=== PATIENT | male | born 1950 | race Caucasian/White ===

== ENCOUNTER 2024-01-14 10:37 | Inpatient (IN) | payer OTHER, MEDICARE ==
[2024-01-13 14:02] LABS: BASOPHILS % (AUTO) 0.6 % (0-1); EOSINOPHILS # (AUTO) 0.1 X10'3 (0-0.9); EOSINOPHILS % (AUTO) 1.2 % (0-6); LYMPHOCYTES # (AUTO) 0.8 X10'3 (1.1-4.8); LYMPHOCYTES % (AUTO) 15.6 % (21-51); MEAN CORPUSCULAR HEMOGLOBIN 26.1 PG (27.0-31.0); MEAN CORPUSCULAR HGB CONC 32.1 g/dL (33.0-36.5); MEAN CORPUSCULAR VOLUME 81.3 FL (78-98); MEAN PLATELET VOLUME 8.7 FL (7.4-10.4); MONOCYTES # (AUTO) 0.5 X10'3 (0-0.9); NEUTROPHILS # (AUTO) 3.9 X10'3 (1.8-7.7); NEUTROPHILS % (AUTO) 73.6 % (42-75); PRE OP HEMATOCRIT 40.7 % (42.0-52.0); PRE OP HEMOGLOBIN 13.1 g/dL (14.0-17.9); PRE OP PLATELET COUNT 174 X10'3 (140-440); PRE OP WHITE BLOOD COUNT 5.4 10'3 (4.8-10.8); RED BLOOD COUNT 5.01 X10'6 (4.70-6.10); RED CELL DISTRIBUTION WIDTH 16.3 % (11.5-14.5)
[2024-01-13 14:17] LABS: PRE OP INR 1.1 INR; PRE OP PROTIME 11.5 SECONDS (9.0-12.0)
[2024-01-13 14:21] LABS: ALBUMIN 3.4 G/DL (3.4-5.0); ALBUMIN/GLOBULIN RATIO 0.9 (1.1-1.5); ALKALINE PHOSPHATASE 101 IU/L (46-116); BLOOD UREA NITROGEN 19 MG/DL (7-18); BUN/CREATININE RATIO 13.2 (10.0-20.0); CHLORIDE 106 MMOL/L (99-107); CREATININE 1.44 MG/DL (0.60-1.10); PRE OP ALT 24 U/L (30-65); PRE OP ANION GAP 7 (8-16); PRE OP AST 28 U/L (10-37); PRE OP BILIRUB, TOTAL 0.4 MG/DL (0.0-1.0); PRE OP GLUCOSE 121 MG/DL (70-104); PRE OP POTASSIUM 4.1 MMOL/L (3.4-5.1); PRE OP SODIUM 141 MMOL/L (135-145); TOTAL CARBON DIOXIDE 28.5 MMOL/L (24-32); TOTAL PROTEIN 7.2 G/DL (6.4-8.2); eGFR 48 ML/MIN
[2024-01-14] VITALS (19 sets, daily range): BP systolic 101–127; BP diastolic 65–79; PULSE 60–92; RESP 7–20; TEMP 97.9–98.5; O2SAT 91–100
[~2024-01-14] VITALS: Ht 167.6 cm; Wt 89.3 kg
[2024-01-14] MEDS: metoprolol tartrate 12.5mg (1/2 tablet) PO ONE (05:30)
[2024-01-14] MEDS: cefazolin 2gm/D5W 100mL 100 ML IV ONE (05:30)
[2024-01-14] MEDS: DOCUMENT DATE & TIME OF BETA-BLOCKER PO ONE (08:00)
[~2024-01-14 10:37] MED LIST: APIX5TAB3 PO; ASPI81TA52 PO; CARV6.252 PO; CEPH500C2 PO; DOXY-1 PO; EMPA25TA PO; FINA5TAB11 PO; LEVE10006 PO; LEVO150T8 PO; LORA10TA7 PO; MELA3CAP2 PO; OMEP20CA16 PO; POTA-192 PO; RIVA1PAT TOP; SACU1TAB7 PO; SPIR25TA5 PO
[2024-01-14] MEDS: vancomycin 1,500 MG in NS 300ml IV soln IV ONE (12:54)
[2024-01-14] MEDS: famotidine 20mg tablet PO ONE (12:54)
[2024-01-14] MEDS: ringers solution, lacted 1,000 ML IV SCH (12:54)
[2024-01-14] MEDS ORDERED: sevoflurane 250ml liquid IH ONE (14:41)
[2024-01-14] MEDS ORDERED: fentaNYL/PF 50MCG/1 ML 2ML syringe ONE (14:43)
[2024-01-14] MEDS ORDERED: rocuronium 10mg/ml inj IV ONE (14:44)
[2024-01-14] MEDS ORDERED: propofol inj 20 ML IV ONE (14:44)
[2024-01-14] MEDS ORDERED: meperidine/PF 25mg/ml syringe IV PRN ×3 (15:10)
[2024-01-14] MEDS ORDERED: morphine 2 MG/ML inj. syringe IV PRN ×2 (15:10→16:00)
[2024-01-14] MEDS ORDERED: proCHLORperazine 10 MG/2 ml inj IV PRN (15:10)
[2024-01-14] MEDS ORDERED: ringers solution, lacted 1,000 ML IV SCH (15:10)
[2024-01-14] MEDS ORDERED: morphine 4 MG/ML inj SYRINge IV PRN ×2 (15:10→16:00)
[2024-01-14] MEDS ORDERED: ondansetron/PF 4mg/2ml inj IV PRN ×2 (15:10→16:00)
[2024-01-14] MEDS ORDERED: loratadine 10mg tablet PO PRN (16:00)
[2024-01-14] MEDS ORDERED: albuterol 2.5 MG/3 ML nebule NEB PRN (16:00)
[2024-01-14] MEDS ORDERED: metoclopramide 5 mg/ml inj IV PRN (16:00)
[2024-01-14] MEDS ORDERED: HYDROcodone/acetaminophen 10/325mg tab PO PRN (16:00)
[2024-01-14] MEDS ORDERED: ondansetron/PF 4mg/2ml inj ONE (16:05)
[2024-01-14] MEDS ORDERED: dexamethasone sod phosphate 4mg/ml inj. ONE (16:05)
[2024-01-14] MEDS ORDERED: glycopyrrolate 0.2mg/ml inj ONE (16:06)
[2024-01-14] MEDS ORDERED: neostigmine methylsulfate 1 MG/ML 10ml vial ONE (16:06)
[2024-01-14] MEDS: DOXYCYCLINE 100MG CAPSULE PO SCH (21:11)
[2024-01-14] MEDS: levetiracetam 250mg tablet PO SCH (21:11)
[2024-01-14] MEDS: carvedilol 6.25mg tablet PO SCH (21:11)
[2024-01-14] MEDS: Melatonin 3mg tablet PO SCH (21:11)
[2024-01-14] MEDS: HYDROcodone/acetaminophen 10/325mg tab PO PRN (21:13)
[2024-01-14] MEDS: docusate sod 100mg capsule PO SCH (21:13)
[2024-01-15] VITALS (8 sets, daily range): BP systolic 102–122; BP diastolic 61–89; PULSE 67–95; RESP 15–18; TEMP 97.9–98.8; O2SAT 92–98
[2024-01-15] MEDS: spironolactone 25 MG tablet PO SCH (01:44)
[2024-01-15] MEDS: sacubitril/valsartan 49mg-51mg tablet PO SCH (01:45)
[2024-01-15] MEDS: ceFAZolin inj. 1,000 MG in dextrose 5%-water 50ml 50 ML IV SCH (01:46)
[2024-01-15 06:42] LABS: BASOPHILS % (AUTO) 0.5 % (0-1); EOSINOPHILS % (AUTO) 0 % (0-6); HEMATOCRIT 35.2 % (42.0-52.0); HEMOGLOBIN 11.4 g/dl (14.0-17.9); LYMPHOCYTES # (AUTO) 0.4 X10'3 (1.1-4.8); MEAN CORPUSCULAR HEMOGLOBIN 26.3 PG (27.0-31.0); MEAN CORPUSCULAR HGB CONC 32.5 g/dL (33.0-36.5); MEAN CORPUSCULAR VOLUME 80.7 FL (78-98); MEAN PLATELET VOLUME 9.3 FL (7.4-10.4); MONOCYTES # (AUTO) 0.5 X10'3 (0-0.9); MONOCYTES % (AUTO) 7.3 % (2-12); NEUTROPHILS # (AUTO) 5.7 X10'3 (1.8-7.7); NEUTROPHILS % (AUTO) 86.2 % (42-75); PLATELET COUNT 152 X10'3 (140-440); RED BLOOD COUNT 4.36 X10'6 (4.70-6.10); RED CELL DISTRIBUTION WIDTH 16.1 % (11.5-14.5); WHITE BLOOD COUNT 6.6 X10'3 (4.5-11.0)
[2024-01-15 07:09] LABS: ALANINE AMINOTRANSFERASE 20 U/L (12-78); ALBUMIN 2.9 G/DL (3.4-5.0); ALBUMIN/GLOBULIN RATIO 0.8 (1.1-1.5); ALKALINE PHOSPHATASE 87 IU/L (46-116); ANION GAP 9 (8-16); ASPARTATE AMINO TRANSFERASE 25 U/L (10-37); BILIRUBIN,TOTAL 0.6 MG/DL (0.1-1.0); BLOOD UREA NITROGEN 23 MG/DL (7-18); CHLORIDE 104 MMOL/L (99-107); CREATININE 1.53 MG/DL (0.60-1.10); GLUCOSE 118 MG/DL (70-104); MAGNESIUM 1.8 MG/DL (1.5-2.4); POTASSIUM 4.7 MMOL/L (3.5-5.1); SODIUM 140 MMOL/L (135-145); TOTAL CARBON DIOXIDE 26.6 MMOL/L (24-32); TOTAL PROTEIN 6.4 G/DL (6.4-8.2); eCRCL 38 ML/MIN; eGFR 45 ML/MIN
[2024-01-15] MEDS: rivastigmine 4.6mg/24 hour transdermal patch TOP SCH (08:00)
[2024-01-15] MEDS: levoTHYROXINE 75mcg tablet PO SCH (08:39)
[2024-01-15] MEDS: pantoprazole 40mg Tablet.DR PO SCH (08:40)
[2024-01-15] MEDS: finasteride 5mg tablet PO SCH (11:43)
[2024-01-15] MEDS: furosemide 20 MG/2 ML vial IV ONE (13:36)
[2024-01-16 05:34] LABS: BASOPHILS % (AUTO) 0.4 % (0-1); EOSINOPHILS # (AUTO) 0.1 X10'3 (0-0.9); HEMATOCRIT 34.9 % (42.0-52.0); HEMOGLOBIN 11.4 g/dl (14.0-17.9); LYMPHOCYTES # (AUTO) 0.8 X10'3 (1.1-4.8); LYMPHOCYTES % (AUTO) 15.8 % (21-51); MEAN CORPUSCULAR HEMOGLOBIN 26.5 PG (27.0-31.0); MEAN CORPUSCULAR HGB CONC 32.9 g/dL (33.0-36.5); MEAN CORPUSCULAR VOLUME 80.6 FL (78-98); MONOCYTES # (AUTO) 0.5 X10'3 (0-0.9); MONOCYTES % (AUTO) 9.3 % (2-12); NEUTROPHILS # (AUTO) 3.9 X10'3 (1.8-7.7); NEUTROPHILS % (AUTO) 73.5 % (42-75); PLATELET COUNT 140 X10'3 (140-440); RED BLOOD COUNT 4.33 X10'6 (4.70-6.10); RED CELL DISTRIBUTION WIDTH 16.5 % (11.5-14.5); WHITE BLOOD COUNT 5.2 X10'3 (4.5-11.0)
[2024-01-16 06:00] VITALS: BP 127/78; PULSE 62; RESP 16; TEMP 98.4; O2SAT 92
[2024-01-16 06:01] LABS: ALANINE AMINOTRANSFERASE 16 U/L (12-78); ALBUMIN 2.9 G/DL (3.4-5.0); ALBUMIN/GLOBULIN RATIO 0.8 (1.1-1.5); ALKALINE PHOSPHATASE 80 IU/L (46-116); ANION GAP 10 (8-16); ASPARTATE AMINO TRANSFERASE 22 U/L (10-37); BILIRUBIN,TOTAL 0.4 MG/DL (0.1-1.0); BLOOD UREA NITROGEN 25 MG/DL (7-18); BUN/CREATININE RATIO 16.2 (10.0-20.0); CALCIUM 8.3 MG/DL (8.5-10.1); CHLORIDE 103 MMOL/L (99-107); CREATININE 1.54 MG/DL (0.60-1.10); GLUCOSE 91 MG/DL (70-104); MAGNESIUM 1.7 MG/DL (1.5-2.4); POTASSIUM 4.1 MMOL/L (3.5-5.1); SODIUM 139 MMOL/L (135-145); TOTAL PROTEIN 6.6 G/DL (6.4-8.2); eCRCL 38 ML/MIN; eGFR 44 ML/MIN
[2024-01-16 11:20] VITALS: BP 125/79; PULSE 74; RESP 18; TEMP 97.4; O2SAT 95
[2024-01-16 14:14] VITALS: RESP 18; O2SAT 98
[2024-01-16 15:23] VITALS: BP 130/67; PULSE 67; RESP 17; TEMP 98; O2SAT 95
[2024-01-16 18:00] VITALS: BP 139/80; PULSE 85; RESP 18; TEMP 98.7; O2SAT 91
[2024-01-16 20:00] VITALS: RESP 18; O2SAT 91
[2024-01-17] VITALS: BP 106/70; PULSE 68; RESP 16; TEMP 97.5; O2SAT 94
[2024-01-17 06:00] VITALS: BP 112/70; PULSE 66; RESP 16; TEMP 97.8; O2SAT 94
[2024-01-17 06:01] LABS: BASOPHILS % (AUTO) 0.4 % (0-1); EOSINOPHILS # (AUTO) 0.1 X10'3 (0-0.9); EOSINOPHILS % (AUTO) 1.4 % (0-6); HEMATOCRIT 34.2 % (42.0-52.0); HEMOGLOBIN 11.2 g/dl (14.0-17.9); LYMPHOCYTES # (AUTO) 0.9 X10'3 (1.1-4.8); LYMPHOCYTES % (AUTO) 18.6 % (21-51); MEAN CORPUSCULAR HEMOGLOBIN 26.5 PG (27.0-31.0); MEAN CORPUSCULAR HGB CONC 32.8 g/dL (33.0-36.5); MEAN CORPUSCULAR VOLUME 80.7 FL (78-98); MEAN PLATELET VOLUME 9.2 FL (7.4-10.4); MONOCYTES # (AUTO) 0.5 X10'3 (0-0.9); MONOCYTES % (AUTO) 10.8 % (2-12); NEUTROPHILS # (AUTO) 3.3 X10'3 (1.8-7.7); NEUTROPHILS % (AUTO) 68.8 % (42-75); PLATELET COUNT 143 X10'3 (140-440); RED BLOOD COUNT 4.24 X10'6 (4.70-6.10); RED CELL DISTRIBUTION WIDTH 16.4 % (11.5-14.5); WHITE BLOOD COUNT 4.8 X10'3 (4.5-11.0)
[2024-01-17 06:09] LABS: ALANINE AMINOTRANSFERASE 16 U/L (12-78); ALBUMIN 2.6 G/DL (3.4-5.0); ALBUMIN/GLOBULIN RATIO 0.7 (1.1-1.5); ALKALINE PHOSPHATASE 74 IU/L (46-116); ANION GAP 9 (8-16); ASPARTATE AMINO TRANSFERASE 22 U/L (10-37); BILIRUBIN,TOTAL 0.5 MG/DL (0.1-1.0); BLOOD UREA NITROGEN 23 MG/DL (7-18); BUN/CREATININE RATIO 17.3 (10.0-20.0); CALCIUM 8.1 MG/DL (8.5-10.1); CHLORIDE 103 MMOL/L (99-107); CREATININE 1.33 MG/DL (0.60-1.10); GLUCOSE 93 MG/DL (70-104); MAGNESIUM 1.9 MG/DL (1.5-2.4); POTASSIUM 3.8 MMOL/L (3.5-5.1); SODIUM 138 MMOL/L (135-145); THYROID STIMULATING HORMONE 2.37 ulU/ml (0.34-4.50); TOTAL CARBON DIOXIDE 25.8 MMOL/L (24-32); TOTAL PROTEIN 6.2 G/DL (6.4-8.2); eCRCL 44 ML/MIN; eGFR 53 ML/MIN
[2024-01-17] MEDS: aspirin 81mg, enteric-coated 1 TAB TABLET.DR PO SCH (08:52)
[2024-01-17 11:00] VITALS: BP 103/61; PULSE 67; RESP 17; TEMP 98.3; O2SAT 95
[2024-01-17 18:00] VITALS: BP 141/76; PULSE 70; RESP 18; TEMP 98.6; O2SAT 95
[2024-01-17 20:00] VITALS: RESP 18; O2SAT 95
[2024-01-18 02:00] VITALS: BP 118/68; PULSE 66; RESP 19; TEMP 98.6; O2SAT 94
[2024-01-18 06:00] VITALS: BP 103/67; PULSE 65; RESP 18; TEMP 97.3; O2SAT 100
[2024-01-18 07:02] LABS: BASOPHILS % (AUTO) 0.9 % (0-1); EOSINOPHILS # (AUTO) 0.1 X10'3 (0-0.9); HEMATOCRIT 34.3 % (42.0-52.0); HEMOGLOBIN 11.3 g/dl (14.0-17.9); LYMPHOCYTES # (AUTO) 0.9 X10'3 (1.1-4.8); LYMPHOCYTES % (AUTO) 18.2 % (21-51); MEAN CORPUSCULAR HEMOGLOBIN 26.4 PG (27.0-31.0); MEAN CORPUSCULAR HGB CONC 32.8 g/dL (33.0-36.5); MEAN CORPUSCULAR VOLUME 80.5 FL (78-98); MEAN PLATELET VOLUME 8.9 FL (7.4-10.4); MONOCYTES # (AUTO) 0.5 X10'3 (0-0.9); MONOCYTES % (AUTO) 10.5 % (2-12); NEUTROPHILS # (AUTO) 3.3 X10'3 (1.8-7.7); NEUTROPHILS % (AUTO) 68.4 % (42-75); PLATELET COUNT 144 X10'3 (140-440); RED BLOOD COUNT 4.26 X10'6 (4.70-6.10); RED CELL DISTRIBUTION WIDTH 16.3 % (11.5-14.5); WHITE BLOOD COUNT 4.8 X10'3 (4.5-11.0)
[2024-01-18 07:18] LABS: ALANINE AMINOTRANSFERASE 13 U/L (12-78); ALBUMIN 2.8 G/DL (3.4-5.0); ALBUMIN/GLOBULIN RATIO 0.8 (1.1-1.5); ALKALINE PHOSPHATASE 81 IU/L (46-116); ANION GAP 8 (8-16); ASPARTATE AMINO TRANSFERASE 24 U/L (10-37); BILIRUBIN,TOTAL 0.6 MG/DL (0.1-1.0); BLOOD UREA NITROGEN 20 MG/DL (7-18); BUN/CREATININE RATIO 16.1 (10.0-20.0); CALCIUM 7.9 MG/DL (8.5-10.1); CHLORIDE 101 MMOL/L (99-107); CREATININE 1.24 MG/DL (0.60-1.10); GLUCOSE 92 MG/DL (70-104); MAGNESIUM 1.9 MG/DL (1.5-2.4); POTASSIUM 3.6 MMOL/L (3.5-5.1); SODIUM 135 MMOL/L (135-145); TOTAL CARBON DIOXIDE 26.5 MMOL/L (24-32); TOTAL PROTEIN 6.4 G/DL (6.4-8.2); eCRCL 47 ML/MIN; eGFR 57 ML/MIN
[2024-01-18 11:00] VITALS: BP 109/64; PULSE 60; RESP 16; TEMP 97.9; O2SAT 100
[2024-01-18] MEDS ORDERED: RISP0.5T80 PO (12:42)
[2024-01-18] MEDS ORDERED: RISP0.253 PO (12:42)
[2024-01-18] MEDS ORDERED: morphine 4 MG/ML inj SYRINge IV PRN (17:40)
[2024-01-18] MEDS ORDERED: morphine 2 MG/ML inj. syringe IV PRN (17:40)
[2024-01-18] MEDS ORDERED: HYDROcodone/acetaminophen 5mg/325mg tablet PO PRN (17:40)
[2024-01-18] MEDS ORDERED: HYDROcodone/acetaminophen 10/325mg tab PO PRN (17:40)
[2024-01-18 18:00] VITALS: BP 122/71; PULSE 63; RESP 20; TEMP 98.2; O2SAT 95
[2024-01-18] MEDS: normal saline 1000ml 1,000 ML IV SCH (18:11)
[2024-01-18 20:00] VITALS: RESP 20; O2SAT 95
[2024-01-18] MEDS: Melatonin 3mg tablet PO SCH (20:01)
[2024-01-18 22:00] VITALS: BP 94/77; PULSE 94; RESP 17; TEMP 97.7; O2SAT 94
[2024-01-19 02:00] VITALS: BP 98/61; PULSE 76; RESP 18; TEMP 97.8; O2SAT 96
[2024-01-19 07:00] VITALS: BP 121/70; PULSE 67; RESP 16; TEMP 96.5; O2SAT 95
[2024-01-19 07:43] LABS: BASOPHILS % (AUTO) 0.6 % (0-1); EOSINOPHILS # (AUTO) 0.1 X10'3 (0-0.9); EOSINOPHILS % (AUTO) 3.1 % (0-6); HEMATOCRIT 35.5 % (42.0-52.0); HEMOGLOBIN 11.5 g/dl (14.0-17.9); LYMPHOCYTES # (AUTO) 0.9 X10'3 (1.1-4.8); LYMPHOCYTES % (AUTO) 19.8 % (21-51); MEAN CORPUSCULAR HEMOGLOBIN 26.2 PG (27.0-31.0); MEAN CORPUSCULAR HGB CONC 32.4 g/dL (33.0-36.5); MEAN CORPUSCULAR VOLUME 80.8 FL (78-98); MEAN PLATELET VOLUME 9.3 FL (7.4-10.4); MONOCYTES # (AUTO) 0.5 X10'3 (0-0.9); MONOCYTES % (AUTO) 10.1 % (2-12); NEUTROPHILS % (AUTO) 66.4 % (42-75); PLATELET COUNT 155 X10'3 (140-440); RED BLOOD COUNT 4.39 X10'6 (4.70-6.10); RED CELL DISTRIBUTION WIDTH 16.7 % (11.5-14.5); WHITE BLOOD COUNT 4.5 X10'3 (4.5-11.0)
[2024-01-19 08:51] LABS: ALANINE AMINOTRANSFERASE 13 U/L (12-78); ALBUMIN 2.6 G/DL (3.4-5.0); ALBUMIN/GLOBULIN RATIO 0.7 (1.1-1.5); ALKALINE PHOSPHATASE 76 IU/L (46-116); ANION GAP 8 (8-16); ASPARTATE AMINO TRANSFERASE 21 U/L (10-37); BILIRUBIN,TOTAL 0.4 MG/DL (0.1-1.0); BLOOD UREA NITROGEN 23 MG/DL (7-18); BUN/CREATININE RATIO 18.7 (10.0-20.0); CALCIUM 7.5 MG/DL (8.5-10.1); CHLORIDE 102 MMOL/L (99-107); CREATININE 1.23 MG/DL (0.60-1.10); GLUCOSE 112 MG/DL (70-104); POTASSIUM 3.6 MMOL/L (3.5-5.1); SODIUM 137 MMOL/L (135-145); TOTAL CARBON DIOXIDE 27.3 MMOL/L (24-32); TOTAL PROTEIN 6.2 G/DL (6.4-8.2); eCRCL 48 ML/MIN; eGFR 58 ML/MIN
[2024-01-19 13:36] LABS: BILIRUBIN,URINE NEGATIVE (Neg); CLARITY,URINE SLIGHTLY CLOUDY (Clear); COLOR,URINE YELLOW (Yellow); GLUCOSE, URINE >=1000 mg/dl (Neg); KETONES,URINE TRACE mg/dl (Neg); LEUKOCYTE ESTERASE ,URINE TRACE (Neg); NITRITES, URINE NEGATIVE (Neg); OCCULT BLOOD,URINE NEGATIVE (Neg); PROTEIN,URINE NEGATIVE (Neg)
[2024-01-19 13:45] LABS: UA COLLECTION TYPE NON-SPECIFIED
[2024-01-19 13:47] LABS: SQUAMOUS EPITHELIAL CELL,UR MANY /LPF (FEW)
[2024-01-19 13:51] LABS: YEAST FEW /HPF (NEGATIVE)
[2024-01-19 13:53] LABS: BACTERIA,URINE NONE SEEN /HPF (Neg); RBC,URINE 0-2 /HPF (0-2)
[2024-01-19 16:00] VITALS: BP 121/82; PULSE 67; RESP 18; TEMP 97.1; O2SAT 95
[2024-01-19 18:00] VITALS: BP 95/62; PULSE 73; RESP 15; TEMP 97.8; O2SAT 95
[2024-01-19] MEDS: nystatin/triamcinolone cream 15gm TP SCH (20:00)
[2024-01-19] MEDS: nystatin 15 GM powder TP SCH (21:18)
[2024-01-19 22:00] VITALS: BP 101/47; PULSE 66; RESP 16; TEMP 97.8; O2SAT 99
[2024-01-19 22:54] VITALS: RESP 15; O2SAT 95
[2024-01-20 02:00] VITALS: BP 101/47; PULSE 64; RESP 16; TEMP 97.3; O2SAT 92
[2024-01-20 06:00] VITALS: BP 110/65; PULSE 79; RESP 18; TEMP 98; O2SAT 97
[2024-01-20 08:00] VITALS: RESP 18; O2SAT 97
[2024-01-20 11:00] VITALS: BP 117/72; PULSE 60; RESP 21; TEMP 97.8; O2SAT 99
[2024-01-20 11:40] LABS: BASOPHILS % (AUTO) 0.3 % (0-1); EOSINOPHILS # (AUTO) 0.1 X10'3 (0-0.9); EOSINOPHILS % (AUTO) 1.9 % (0-6); HEMATOCRIT 35.4 % (42.0-52.0); HEMOGLOBIN 11.4 g/dl (14.0-17.9); LYMPHOCYTES # (AUTO) 0.7 X10'3 (1.1-4.8); LYMPHOCYTES % (AUTO) 14.8 % (21-51); MEAN CORPUSCULAR HEMOGLOBIN 26.4 PG (27.0-31.0); MEAN CORPUSCULAR HGB CONC 32.1 g/dL (33.0-36.5); MEAN CORPUSCULAR VOLUME 82.2 FL (78-98); MEAN PLATELET VOLUME 8.9 FL (7.4-10.4); MONOCYTES # (AUTO) 0.4 X10'3 (0-0.9); NEUTROPHILS # (AUTO) 3.7 X10'3 (1.8-7.7); PLATELET COUNT 163 X10'3 (140-440); RED BLOOD COUNT 4.31 X10'6 (4.70-6.10); RED CELL DISTRIBUTION WIDTH 16.4 % (11.5-14.5)
[2024-01-20 11:53] LABS: ALANINE AMINOTRANSFERASE 15 U/L (12-78); ALBUMIN 2.7 G/DL (3.4-5.0); ALBUMIN/GLOBULIN RATIO 0.8 (1.1-1.5); ALKALINE PHOSPHATASE 67 IU/L (46-116); ANION GAP 7 (8-16); ASPARTATE AMINO TRANSFERASE 18 U/L (10-37); BILIRUBIN,TOTAL 0.4 MG/DL (0.1-1.0); BLOOD UREA NITROGEN 22 MG/DL (7-18); CALCIUM 7.6 MG/DL (8.5-10.1); CHLORIDE 104 MMOL/L (99-107); CREATININE 1.57 MG/DL (0.60-1.10); GLUCOSE 121 MG/DL (70-104); SODIUM 140 MMOL/L (135-145); TOTAL PROTEIN 6.1 G/DL (6.4-8.2); eCRCL 37 ML/MIN; eGFR 43 ML/MIN
== END 2024-01-20 14:48 | DRG 242 ==
LOC: PAS IN 10:37 → PCU 3S 17:59
PROVIDERS: ADMIT Thoracic Surgery (Cardiothoracic Vascular Surgery); ATTEND Thoracic Surgery (Cardiothoracic Vascular Surgery)
PROC: 0JH606Z Insertion of Pacemaker, Dual Chamber into Chest Subcutaneous Tissue and Fascia, Open Approach (ICD-10-PCS; 2024-01-14)
PROC: 02HL3JZ Insertion of Pacemaker Lead into Left Ventricle, Percutaneous Approach (ICD-10-PCS; 2024-01-14)
PROC: 0JPT0PZ Removal of Cardiac Rhythm Related Device from Trunk Subcutaneous Tissue and Fascia, Open Approach (ICD-10-PCS; principal; 2024-01-14 14:41)
DX: T82.7XXA Infection and inflammatory reaction due to other cardiac and vascular devices, implants and grafts, initial encounter (principal); G93.41 Metabolic encephalopathy; F03.92 Unspecified dementia, unspecified severity, with psychotic disturbance; I25.5 Ischemic cardiomyopathy; L02.223 Furuncle of chest wall; I50.9 Heart failure, unspecified; G40.909 Epilepsy, unspecified, not intractable, without status epilepticus; E07.9 Disorder of thyroid, unspecified; R33.9 Retention of urine, unspecified; Y83.8 Other surgical procedures as the cause of abnormal reaction of the patient, or of later complication, without mention of misadventure at the time of the procedure; Y92.89 Other specified places as the place of occurrence of the external cause; Z95.0 Presence of cardiac pacemaker
CPT/HCPCS: 36415; 71045; 80053; 81001; 82948; 83735; 84145; 84443; 85025; 85610; 85651; 85730; 86592; 87081; 93005; 97116; 97161; 97530; A4215; A4565; A4618; A6213; A6250; A6258; A6260; A6449; A6590; A7000; C1758; C1898; C2621; G0378; J0690; J1100; J1940; J2405; J2704; J2710; J3010; J3370; J3490; J7030; J7060; J7120; J7999